=== PATIENT | male | born 1955 | race Hispanic/Latino ===

== ENCOUNTER 2019-12-02 23:17 | Emergency (ER) | payer SELFPAY, OTHER ==
--- NOTE | 2019-12-03 02:02 | EDPHYS ---
Physician Documentation [facility] Name: Low Ko Age: 64 yrs Sex: Male : 1955 Arrival Date: 12/02/2019 Time: 23:19 Bed 24 Private MD: ED Physician Tono Raplh HPI: 12/02 02:41 This 64 yrs old Male presents to ER via Ambulatory with complaints of Sore snw Throat. 02:41 The patient presents with sore throat. The patient describes throat pain as raw, snw scratchy. Onset: The symptoms/episode began/occurred 1.5 week(s) ago, and became persistent. Modifying factors: The symptoms are alleviated by nothing, the symptoms are aggravated by swallowing. Associated signs and symptoms: Pertinent positives: cough, flu-like symptoms. The patient has not experienced similar symptoms in the past. The patient has been recently seen by a physician: with similar presenting complaints, and apparently given a diagnosis of streptococcal pharyngitis, lab tests were done. Pt states he rec'd abx for Zithromax. Finished Z-max and cough medications and feels no better. . Historical: - Allergies: 01:09 No Known Allergies; sg - Immunization history:: Adult Immunizations not up to date. - Social history:: Smoking status: Patient denies any tobacco usage or history of. ROS: 02:40 Constitutional: Negative for fever, chills, and weight loss, Eyes: Negative for injury, snw pain, redness, and discharge, Neck: Negative for injury, pain, and swelling, Cardiovascular: Negative for chest pain, palpitations, and edema, Abdomen/GI: Negative for abdominal pain, nausea, vomiting, diarrhea, and constipation, Back: Negative for injury and pain, : Negative for injury, bleeding, discharge, and swelling, MS/Extremity: Negative for injury and deformity, Skin: Negative for injury, rash, and discoloration, Neuro: Negative for headache, weakness, numbness, tingling, and seizure, Psych: Negative for depression, anxiety, suicide ideation, homicidal ideation, and hallucinations. 02:40 ENT: Positive for sore throat. 02:40 Respiratory: Positive for cough, with no reported sputum. Exam: 02:38 Constitutional: This is a well developed, well nourished patient who is awake, alert, snw and in no acute distress. Head/Face: Normocephalic, atraumatic. Eyes: Pupils equal round and reactive to light, extra-ocular motions intact. Lids and lashes normal. Conjunctiva and sclera are non-icteric and not injected. Cornea within normal limits. Periorbital areas with no swelling, redness, or edema. Neck: Trachea midline, no thyromegaly or masses palpated, and no cervical lymphadenopathy. Supple, full range of motion without nuchal rigidity, or vertebral point tenderness. No Meningismus. Chest/axilla: Normal chest wall appearance and motion. Nontender with no deformity. No lesions are appreciated. Cardiovascular: Regular rate and rhythm with a normal S1 and S2. No gallops, murmurs, or rubs. Normal PMI, no JVD. No pulse deficits. Abdomen/GI: Soft, non-tender, with normal bowel sounds. No distension or tympany. No guarding or rebound. No evidence of tenderness throughout. Back: No spinal tenderness. No costovertebral tenderness. Full range of motion. Skin: Warm, dry with normal turgor. Normal color with no rashes, no lesions, and no evidence of cellulitis. MS/ Extremity: Pulses equal, no cyanosis. Neurovascular intact. Full, normal range of motion. Neuro: Awake and alert, GCS 15, oriented to person, place, time, and situation. Cranial nerves II-XII grossly intact. Motor strength 5/5 in all extremities. Sensory grossly intact. Cerebellar exam normal. Normal gait. Psych: Awake, alert, with orientation to person, place and time. Behavior, mood, and affect are within normal limits. 02:38 ENT: External ear(s): are unremarkable, Nose: is normal, Mouth: is normal, Posterior pharynx: is normal, gingiva, tongue and posterior pharynx with erythema. Stomatitis. 02:38 Respiratory: the patient does not display signs of respiratory distress, Respirations: normal, Breath sounds: are clear throughout, persistent cough. Vital Signs: 00:00 BP 142 / 76; Pulse 77; Resp 18; Pulse Ox 96% on R/A; sg MDM: 01:44 Patient medically screened. snw 02:39 Data reviewed: vital signs, nurses notes. Data interpreted: Pulse oximetry: on room air snw is 96 %. Interpretation: acceptable. Counseling: I had a detailed discussion with the patient and/or guardian regarding: the historical points, exam findings, and any diagnostic results supporting the discharge/admit diagnosis, the presence of at least one elevated blood pressure reading (>120/80) during this emergency department visit, lab results, the need for outpatient follow up, to return to the emergency department if symptoms worsen or persist or if there are any questions or concerns that arise at home. Counseling: I had a detailed discussion with the patient and/or guardian regarding: smoking cessation. Special discussion: Based on the history and exam findings, there is no indication for further emergent testing or inpatient evaluation. I discussed with the patient/guardian the need to see the activities officer for further evaluation of the symptoms. I discussed with the patient/guardian the need to see a dentist for further evaluation of the symptoms. I discussed with the patient/guardian the need to see the primary care provider for further evaluation of the symptoms. 12/02 01:59 Order name: COVID-19 snw 12/02 01:59 Order name: CORONAVIRUS EDAR Administered Medications: 02:08 Drug: DiFLUcan 200 mg Route: PO; ea 02:13 Follow up: Response: Medication administered at discharge. everette Disposition: 06:42 Co-signature as Attending Physician, Tono Ralph MD. 7 Disposition: 12/03/19 02:01 Discharged to Home. Impression: Cough, Acute upper respiratory infection, unspecified - CoVid 19 test pending, Candidal stomatitis. - Condition is Stable. - Discharge Instructions: Upper Respiratory Infection, Adult, Stomatitis, Cough, Adult, [id number], Rehydration, Adult. - Medication Reconciliation Form, Thank You Letter, Antibiotic Education, Prescription Opioid Use form. - Follow up: Emergency Department; When: As needed; Reason: Worsening of condition. Follow up: Private Physician; When: 1 week; Reason: Recheck today's complaints, Continuance of care, Re-evaluation by your physician. Signatures: Dispatcher [employer] EDAR Lenny Antonio RN RN sg Therrien, Shelly, ENTRY LEVEL ELECTRICIAN-C ENTRY LEVEL ELECTRICIAN-Csnw Vonda Ruiz RN RN ea Holmes, Maurice, MD MD 7 Corrections: (The following items were deleted from the chart) 02:12 02:01 12/03/2019 02:01 Discharged to Home. Impression: Cough; Acute upper respiratory ea infection, unspecified - CoVid 19 test pending; Candidal stomatitis. Condition is Stable. Forms are Medication Reconciliation Form, Thank You Letter, Antibiotic Education, Prescription Opioid Use. Follow up: Emergency Department; When: As needed; Reason: Worsening of condition. Follow up: Private Physician; When: 1 week; Reason: Recheck today's complaints, Continuance of care, Re-evaluation by your physician. snw
--- NOTE | 2019-12-03 02:02 | ER ---
Nurse's Notes [facility] Name: Low Ko Age: 64 yrs Sex: Male : 1955 Arrival Date: 12/02/2019 Time: 23:19 Bed 24 Private MD: Diagnosis: Cough;Acute upper respiratory infection, unspecified-CoVid 19 test pending;Candidal stomatitis Presentation: 12/02 00:00 Chief complaint: Patient states: Sorethroat and cough for a day, reports having chills sg as well. Coronavirus screen: Proceed with normal triage. Ebola Screen: Patient negative for fever greater than or equal to 101.5 degrees Fahrenheit, and additional compatible Ebola Virus Disease symptoms Patient denies exposure to infectious person. Patient denies travel to an Ebola-affected area in the 21 days before illness onset. No symptoms or risks identified at this time. Initial Sepsis Screen: Does the patient meet any 2 criteria? No. Patient's initial sepsis screen is negative. Does the patient have a suspected source of infection? No. Patient's initial sepsis screen is negative. Risk Assessment: Do you want to hurt yourself or someone else? Patient reports no desire to harm self or others. Onset of symptoms was December 03, 2019. Care prior to arrival: None. Transition of care: patient was not received from another setting of care. 00:00 Method Of Arrival: Ambulatory sg 00:00 Acuity: ADILENE 4 sg Historical: - Allergies: 01:09 No Known Allergies; sg - Immunization history:: Adult Immunizations not up to date. - Social history:: Smoking status: Patient denies any tobacco usage or history of. Screenin:25 Abuse screen: Denies threats or abuse. Denies injuries from another. Nutritional ls4 screening: No deficits noted. Tuberculosis screening: No symptoms or risk factors identified. Fall Risk None identified. Assessment: 02:00 General: Appears in no apparent distress. Behavior is appropriate for age. Pain: ea Complains of pain in sore throat. Neuro: Level of Consciousness is awake, alert, obeys commands, Oriented to person, place, time, situation. Respiratory: Airway is patent Respiratory effort is even, unlabored, Respiratory pattern is regular, symmetrical. EENT: Reports sore throat. Derm: Skin is pink, warm \T\ dry. Vital Signs: 00:00 BP 142 / 76; Pulse 77; Resp 18; Pulse Ox 96% on R/A; sg ED Course: 12/01 23:19 Patient arrived in ED. ds1 12/02 00:18 Triage completed. sg 00:18 Arm band placed on. sg 00:24 Rosa Christopher, RN is Primary Nurse. ls4 00:25 No apparent distress. Resting quietly. ls4 00:25 Patient has correct armband on for positive identification. Bed in low position. Call ls4 light in reach. Side rails up X 1. Pulse ox on. NIBP on. Verbal reassurance given. 00:25 No provider procedures requiring assistance completed. ls4 00:58 Tono Ralph MD is Attending Physician. [facility] 01:43 [facility]amm[facility]C [facility] snw 02:12 Patient did not have IV access during this emergency room visit. ea Administered Medications: 02:08 Drug: DiFLUcan 200 mg Route: PO; ea 02:13 Follow up: Response: Medication administered at discharge. ea Outcome: 02:01 Discharge ordered by . snw 02:12 Discharged to home ambulatory, with family. ea 02:12 Condition: stable 02:12 Discharge instructions given to patient, Instructed on discharge instructions, follow up and referral plans. Demonstrated understanding of instructions, follow-up care. 02:12 Patient left the ED. ea Addendum: 12/04/2019 18:36 Addendum: Other Positive Covid result. Attempt by Dr. Velasquez to contact patient. No s s answer. Signatures: Lenny Antonio RN ESTHER Tammie Ray FNP-C FNP-Kalyn Lee ds1 Eliana Alejandra RN RN ss Antunez, Elena, RN RN ea Stewart, Lisa, RN RN [facility] Tono Ralph MD MD 7
[2019-12-03] MEDS ORDERED: FLUCONAZOLE 100 MG TAB ONE (02:09)
[2019-12-03 02:29] VITALS: BP 142/76; O2SAT 96
== END 2019-12-03 02:12 | disposition home or self-care (01) ==
LOC: ER 23:17
DX: U07.1 COVID-19 (principal); J06.9 Acute upper respiratory infection, unspecified; B37.0 Candidal stomatitis
CPT/HCPCS: 99283; U0001